=== PATIENT | male | born 1970 | race Caucasian/White ===

== ENCOUNTER → 2019-06-02 09:05 | Outpatient (CLI) | payer OTHER, SELFPAY ==
[2019-06-02 08:51] VITALS: BMI 31.1
--- NOTE | 2019-06-02 09:06 | RAD_ITS ---
STUDY: X-RAY - LEFT KNEE REASON FOR EXAM: Male, 49 years old. [place] and felt a and quot; pop and quot; while walking down steps yesterday, pain and limited ability to weight bear TECHNIQUE: 4 view(s) of the knee. COMPARISON: None. FINDINGS: Normal visualized distal femur. Normal visualized proximal tibia and fibula. Normal proximal tibiofibular articulation. Normal medial femorotibial compartment. Normal lateral femorotibial compartment. Normal patellofemoral articulation. The soft tissue structures are unremarkable. RAD/Knee 4 or More Views IMPRESSION: Normal x-ray examination of the knee. Electronically Signed: Ernesto Riggs, at 9:27 EST , Service support ,
== END ==
LOC: HPRAD 09:05
PROVIDERS: PCP Family Medicine; Referring Provider Physician Assistant Surgical; Visit Provider Physician Assistant Surgical
DX: S86.912A Strain of unspecified muscle(s) and tendon(s) at lower leg level, left leg, initial encounter (principal); X58.XXXA Exposure to other specified factors, initial encounter; Y93.9 Activity, unspecified; Y92.9 Unspecified place or not applicable; Y99.9 Unspecified external cause status
CPT/HCPCS: 73564

== ENCOUNTER → 2019-06-05 08:20 | Outpatient (CLI) | payer OTHER, SELFPAY ==
[2019-06-05 08:12] VITALS: BMI 31.1
--- NOTE | 2019-06-05 08:20 | RAD_ITS ---
STUDY: X-RAY - RIGHT KNEE REASON FOR EXAM: Male, 49 years old. CHRONIC PAIN TECHNIQUE: 4 view(s) of the knee. COMPARISON: None. FINDINGS: Normal visualized distal femur. Normal visualized proximal tibia and fibula. Normal proximal tibiofibular articulation. There is mild degenerative arthrosis of the medial femorotibial compartment. Normal lateral femorotibial compartment. Normal patellofemoral articulation. The soft tissue structures are unremarkable. RAD/Knee 4 or More Views IMPRESSION: Mild medial compartment arthrosis Electronically Signed: Kimani Inman MD at 13:51 EST , Service support ,
== END ==
LOC: HPRAD 08:20
PROVIDERS: PCP Family Medicine; Referring Provider Orthopaedic Surgery; Visit Provider Orthopaedic Surgery
DX: M25.561 Pain in right knee (principal)
CPT/HCPCS: 73564

== ENCOUNTER → 2019-07-07 16:07 | Outpatient (CLI) | payer OTHER, SELFPAY ==
[2019-06-05 08:12] VITALS: BMI 31.1
--- NOTE | 2019-07-07 16:15 | MRI_ITS ---
STUDY: MRI LEFT KNEE REASON FOR EXAM: Left knee pain, no specific injury. TECHNIQUE: Standardized fat and water weighted pulse sequences were obtained in all 3 orthogonal planes. COMPARISON: Radiographs 06/02/2019. FINDINGS: There is a radial tear of the posterior horn of the medial meniscus near the root (T2 coronal images 10-12). There is a focal chondral defect of the medial femoral condyle (T2 sagittal image 7; T2 coronal images 15-17) measuring approximately 1.5 x 0.7 cm (AP x transverse). There is slight subchondral bone edema of the medial femoral condyle and tibial plateau. Normal medial collateral ligamentous complex (MCL). Normal distal semimembranosus, gracilis and semitendinosus tendons. Normal lateral meniscus. Normal hyaline cartilage of the lateral femorotibial compartment. Normal lateral femoral condyle and tibial plateau. Normal proximal tibiofibular articulation. Normal lateral collateral (fibular) ligament. Normal popliteus tendon. Normal biceps femoris tendon. There is intrasubstance mucoid degeneration of the anterior cruciate ligament (T2 sagittal image 13). Normal posterior cruciate ligament (PCL). There is lateral subluxation of the patella (T2 axial image 9). There is intermediate grade chondromalacia patellae, especially of the lateral patellar facet (T2 axial image 7). Normal medial and lateral patellar retinaculum. Normal visualized quadriceps tendon. Normal patellar tendon. Normal Hoffa''s fat pad. There is a moderately large joint effusion. There is a thin patellar plica. There is edema in the subcutis adipose space. The otherwise visualized osseous structures are unremarkable. MRI/Lower Ext Joint Only (Routine) IMPRESSION: Radial tear of the medial meniscus. Focal chondral defect of the medial femoral condyle. Chondromalacia patellae. Lateral subluxation of the patella. Joint effusion. Electronically Signed: Chavez Raphael MD at 8:59 EDT Tel , Service support ,
== END ==
LOC: MRI 16:08
PROVIDERS: PCP Family Medicine; Referring Provider Orthopaedic Surgery; Visit Provider Orthopaedic Surgery
DX: M25.562 Pain in left knee (principal)
CPT/HCPCS: 73721

== ENCOUNTER 2019-09-01 05:55 | Day surgery (SDC) | payer OTHER, SELFPAY ==
[2019-07-13 08:41] VITALS: BMI 31.1
--- NOTE | 2019-07-13 08:55 | HP_ITS ---
Intake Vital Signs 07/13/19 BMI 31.1 Intake Visit Reasons: LEFT KNEE Chief Complaint: left knee Accompanied by: self Allergies No Known Allergies Allergy (Unverified 06/02/19 08:52) Medications omeprazole magnesium 20 mg tablet,delayed release 20 mg PO DAILY 06/02/19 [History Confirmed 07/13/19] lisinopril 20 mg-hydrochlorothiazide 12.5 mg tablet tab PO 06/05/19 [History Confirmed 07/13/19] tramadol 50 mg tablet 50 mg PO Q8H PRN #42 tab 07/08/19 [Rx Confirmed 07/13/19] PFSH Medical History (Updated 06/02/19 @ 09:01 by JAQUAN Braxton) History of arthritis (Acute) Knee pain (Acute) Hypertension (Chronic) Social History (Updated 07/13/19 @ 09:[address] Ganga Velásquez DO) alcohol intake: never HPI LEFT KNEE: Surgical H&P: Yes Details: Parts of this documentation were recorded by a scribe, this documentation accurately reflects the service provided and the decisions made by Ganga pelaez DO 07/13/19 0836. SHERRI MILLER is a 49 year old M here today for F/U on left knee. Patient had MRI on 07/07/2019, disscussed surgery with patient on 07/08/2019. He continues to have generalized BL knee pain. Does have painful popping and clicking in the left knee. Patient wishes to proceed with having surgery of the left knee. [place] [facility] [place]PI, Reports abnormal walking, Reports joint pain, Reports limited joint movement, Reports stiffness Neuro Yes abnormal walking Ortho Exam Right Knee Patella Translation: 1 Left Knee Skin/Wound: No ecchymosis, No erythema, No swelling Homans Sign: No Knee ROM: Yes ROM-Extension -20 to 0, No ROM-Flexion 0-140 (110) Examination: Yes med jt line tenderness, No Lat jt line tenderness, Yes Crepitus, Yes Pain with flexion, Yes Rachel's Test (pain medial), Yes Loredo's Stability: NML: Anterior Drawer, NML: Valgus 30, NML: Varus 30 Apprehension with Lateral Translation: No Patella Translation: 1 Patella Grind: No KNEE: painful grind of patella, Supplemental Info 06/05/2019 x-ray right knee mild medial joint space narrowing mild spurring medial compartment mild spurring patellofemoral joint 06/02/2019 x-ray left knee: 3 medial and lateral femoral condyle mild spurring trochlea Assessment & Plan Problems 1. Tear of medial meniscus of left knee, current, unspecified tear type, initial encounter S83.242A 2. Primary osteoarthritis of left knee M17.12 Plan Patient is here today to discuss surgery. Patient wishes to proceed with Left knee partial medial meniscectomy with possible microfracture medial femoral condyle. Reviewed the pre-operative plans with the patient. Risks and benefits of the procedure were fully explained, including but not limited to infection, neurovascular injury, continued pain, arthritis, stiffness, need for further surgery, re-injury, DVT, PE, general risks of anesthesia, and loss of limb or life. The patient understands all the risks and does wish to proceed with written consent. Patient wishes to have the [facility]. We will try to place the patient on the surgery schedule for tomorrow, 07/14/2019. Follow up 2 weeks post op or sooner if pain, swelling, numbness or associated symptoms, or concerns develop. All questions answered. Patient in agreement of plan. He understands if microfracture is performed he will be toe-touch weightbearing for 6 weeks on that side Coding Level of Care Code Off vis,est,level 3 Diagnoses Tear of medial meniscus of left knee, current, unspecified tear type, initial encounter S83.242A ??Encounter type: initial encounter ??Meniscus tear of knee type: unspecified type ??Tear current or old: current Primary osteoarthritis of left knee M17.12 ??Osteoarthritis type: primary 07/13/19 0934 <Electronically signed by Ganga ortiz DO> Date _ Ganga Velásquez DO
[2019-08-26 09:38] VITALS: BMI 31.1
[2019-09-01 06:22] VITALS: BP 145/72; PULSE 66; RESP 18; TEMP 36.5; O2SAT 98; BMI 33.6
[2019-09-01] MEDS: Lactated Ringers 1,000 ML 100 ML IV (06:39)
--- NOTE | 2019-09-01 07:30 | HP.PCM_ITS ---
History and Physical Date of Admission: 09/01/19 Intake Vital Signs 07/13/19 BMI 31.1 Intake Visit Reasons: LEFT KNEE Chief Complaint: left knee Accompanied by: self Allergies No Known Allergies Allergy (Unverified 06/02/19 08:52) Medications omeprazole magnesium 20 mg tablet,delayed release 20 mg PO DAILY 06/02/19 [History Confirmed 07/13/19] lisinopril 20 mg-hydrochlorothiazide 12.5 mg tablet tab PO 06/05/19 [History Confirmed 07/13/19] tramadol 50 mg tablet 50 mg PO Q8H PRN #42 tab 07/08/19 [Rx Confirmed 07/13/19] PFSH Medical History (Updated 06/02/19 @ 09:01 by JAQUAN Braxton) History of arthritis (Acute) Knee pain (Acute) Hypertension (Chronic) Social History (Updated 07/13/19 @ 09:[address] Ganga Velásquez DO) alcohol intake: never HPI LEFT KNEE: Surgical H&P: Yes Details: Parts of this documentation were recorded by a scribe, this documentation accurately reflects the service provided and the decisions made by Ganga pelaez DO 07/13/19 0836. SHERRI MILLER is a 49 year old M here today for F/U on left knee. Patient had MRI on 07/07/2019, disscussed surgery with patient on 07/08/2019. He continues to have generalized BL knee pain. Does have painful popping and clicking in the left knee. Patient wishes to proceed with having surgery of the left knee. [place] [facility] [place]PI, Reports abnormal walking, Reports joint pain, Reports limited joint movement, Reports stiffness Neuro Yes abnormal walking Ortho Exam Right Knee Patella Translation: 1 Left Knee Skin/Wound: No ecchymosis, No erythema, No swelling Homans Sign: No Knee ROM: Yes ROM-Extension -20 to 0, No ROM-Flexion 0-140 (110) Examination: Yes med jt line tenderness, No Lat jt line tenderness, Yes Crepitus, Yes Pain with flexion, Yes Rachel's Test (pain medial), Yes Loredo's Stability: NML: Anterior Drawer, NML: Valgus 30, NML: Varus 30 Apprehension with Lateral Translation: No Patella Translation: 1 Patella Grind: No KNEE: painful grind of patella, Supplemental Info 06/05/2019 x-ray right knee mild medial joint space narrowing mild spurring medial compartment mild spurring patellofemoral joint 06/02/2019 x-ray left knee: 3 medial and lateral femoral condyle mild spurring trochlea Assessment & Plan Problems 1. Tear of medial meniscus of left knee, current, unspecified tear type, initial encounter S83.242A 2. Primary osteoarthritis of left knee M17.12 Plan Patient is here today to discuss surgery. Patient wishes to proceed with Left knee partial medial meniscectomy with possible microfracture medial femoral condyle. Reviewed the pre-operative plans with the patient. Risks and benefits of the procedure were fully explained, including but not limited to infection, neurovascular injury, continued pain, arthritis, stiffness, need for further surgery, re-injury, DVT, PE, general risks of anesthesia, and loss of limb or life. The patient understands all the risks and does wish to proceed with written consent. Patient wishes to have the [facility]. We will try to place the patient on the surgery schedule for tomorrow, 07/14/2019. Follow up 2 weeks post op or sooner if pain, swelling, numbness or associated symptoms, or concerns develop. All questions answered. Patient in agreement of plan. He understands if microfracture is performed he will be toe-touch weightbearing for 6 weeks on that side Coding Level of Care Code Off vis,est,level 3 Diagnoses Tear of medial meniscus of left knee, current, unspecified tear type, initial encounter S83.242A ??Encounter type: initial encounter ??Meniscus tear of knee type: unspecified type ??Tear current or old: current Primary osteoarthritis of left knee M17.12 ??Osteoarthritis type: primary I have re-examined the patient. There are no clinical changes since date of exam
[2019-09-01] MEDS: Cefazolin 2 GM in 0.9% Normal Saline 100 ML IV (07:39)
[2019-09-01] MEDS: Epinephrine (1 mg/ml) 1 MG/ML VIAL (07:51)
[2019-09-01] MEDS: morphine PF (epidural) 5 MG/10 ML Vial (07:51)
[2019-09-01] MEDS: MethylPREDNISolone Acetate 80 MG/ML Vial (07:51)
[2019-09-01] MEDS: Bupivacaine Mpf 0.5% 30 ML VIAL (07:51)
[2019-09-01] MEDS: Bupiv/Epi 0.5% Mpf 30 ML Vial (07:51)
[2019-09-01 08:28] VITALS: BP 145/72; BP 146/79; PULSE 71; RESP 18; TEMP 36.7; O2SAT 92
[2019-09-01 08:37] VITALS: BP 138/85; BP 145/72; PULSE 75; RESP 18; O2SAT 96
--- NOTE | 2019-09-01 08:41 | DCINST_ITS ---
Discharge Diet: No Restrictions Weight Bearing Status: Weight bearing as tolerated Call your doctor if you observe: Fever of 101 or Higher, Shortness of breath, Chest pain Additional Instructions: Ice and elevate next 72 hours .keep dressing on clean and dry for 48 hours then may remove begin showering daily but do not submerge in tub or pool. After shower may apply Band-Aids . Encourage knee range of motion weightbearing as tolerated, use crutches until confident in knee then may discontinue. No strenuous activity. When not ambulating keep iced and elevated next 72 hours. Allergies/Adverse Reactions: Allergies No Known Allergies Allergy (Unverified 09/01/19 06:18) Medications to take at Discharge omeprazole magnesium 20 mg tablet,delayed release 20 mg PO DAILY 06/02/19 lisinopril 20 mg-hydrochlorothiazide 12.5 mg tablet 1 tab PO DAILY 06/05/19 tramadol 50 mg tablet 50 mg PO Q8H PRN #42 tab 07/08/19 etodolac 500 mg tablet 500 mg PO BID #60 tab 07/17/19 Primary Care Physician: Erik Shaw MD [Primary Care Provider] - Test Results: Test results from this visit will be discussed in further detail at your follow- up appointment, if applicable. Please Follow Up With: Ganga Velásquez DO - 2 weeks
[2019-09-01 08:45] VITALS: BP 130/68; BP 145/72; PULSE 71; RESP 18; O2SAT 95
[2019-09-01 08:53] VITALS: BP 133/75; BP 145/72; PULSE 66; RESP 18; TEMP 36.9; O2SAT 96
[2019-09-01 09:59] VITALS: BP 126/73; BP 145/72; PULSE 58; RESP 16; TEMP 35.8; O2SAT 97
--- NOTE | 2019-09-08 14:06 | OP.PCM_ITS ---
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 Risk benefits and alternatives of the procedure were reviewed including risk of bleeding infection nerve artery tissue damage need for further surgery continued pain and expected postoperative course. Procedure: The patient was met in the preoperative holding area. The operative extremity was identified by both patient and physician and family and marked. Patient was brought back to the operating room on a wheeled cart and transferred to the operating table in the supine position. Anesthesia was started. A well- padded tourniquet was placed on the operative extremity. A lower extremity leg vernon was secured to the operative extremity. The contralateral extremity was well-padded and the end of the bed was flexed to 90 degrees. The patient was prepped and draped in the usual sterile fashion. A timeout was called to ensure the proper patient, procedure, and extremity were being contemplated. 0.5% Marcaine with epinephrine was injected into the planned incisional areas under the skin only. An Esmarch was used to exsanguinate the extremity and the tourniquet was inflated. An 11 blade scalpel was used to make a stab incision i n the anterior lateral portal. The arthroscope was inserted into the intercondylar notch and inflow and outflow tubes were attached. Arthroscopic visualization began. The medial compartment was entered. An 18-gauge spinal needle was used to establish the placement for anterior medial portal. An 11 blade scalpel was used to make a stab incision. Blunt probe was inserted followed by a meniscal probe. Medial compartment was entered noted to be posterior horn medial meniscus tear and a large area of grade III chondromalacia of the medial femoral condyle with some loose cartilage at the periphery it was not felt that microfracture would be appropriate due to the size of the lesion and gentle chondroplasty of the periphery was performed as well as a partial medial meniscectomy the undersurface of the patella demonstrated grade 3 as well but no loose cartilage flaps there was a medial plica which was excised the ACL was found to be intact. The lateral compartment was entered was free of meniscal or cartilage pathology The arthroscope was switched to the medial portal to complete the procedure. The medial and lateral gutters were inspected and were free of loose bodies. The patellofemoral joint was inspected as noted above. There was good patellar tracking. The knee was thoroughly irrigated and drained. An intra-articular injection with 5 cc 0.5% Marcaine plain 4 mg of m orphine and 40 mg of Depo-Medrol was injected intra-articularly. The arthroscope was removed the portals were closed with 3-0 nylon arthroscopic stitches. Followed by Xeroform 4 x 4's ABDs web roll and an Gino wrap. The tourniquet was let down and the drapes were removed. All counts were correct. The patient was brought back to the PACU in stable condition.
== END 2019-09-01 10:11 | disposition home or self-care (01) ==
LOC: SDC 05:56 → AC 05:56
PROVIDERS: PCP Family Medicine; Referring Provider Orthopaedic Surgery; Visit Provider Orthopaedic Surgery
PROC: (CPT 29870; principal; 2019-09-01 07:10)
DX: S83.222A Peripheral tear of medial meniscus, current injury, left knee, initial encounter (principal); M17.12 Unilateral primary osteoarthritis, left knee; X58.XXXA Exposure to other specified factors, initial encounter; Y93.9 Activity, unspecified; Y92.9 Unspecified place or not applicable; Y99.9 Unspecified external cause status; I10 Essential (primary) hypertension; K21.9 Gastro-esophageal reflux disease without esophagitis; Z79.899 Other long term (current) drug therapy
CPT/HCPCS: 01400; 29881; J7120; J2405

== ENCOUNTER → 2019-11-19 | Outpatient (CLI) | payer OTHER, SELFPAY ==
[2019-09-14 08:34] VITALS: BMI 33.6
== END | disposition home or self-care (01) ==
PROVIDERS: PCP Family Medicine; Referring Provider Family Medicine; Visit Provider Family Medicine
DX: Z20.828 Contact with and (suspected) exposure to other viral communicable diseases (principal)
CPT/HCPCS: 87635; U0003

== ENCOUNTER → 2019-12-16 13:02 | Outpatient (CLI) | payer OTHER, SELFPAY ==
[2019-12-07 11:26] VITALS: BMI 33.6
--- NOTE | 2019-12-16 13:03 | MRI_ITS ---
STUDY: MRI RIGHT KNEE REASON FOR EXAM: Chronic right knee pain, swelling, no specific injury, prior arthroscopy. TECHNIQUE: Standardized fat and water weighted pulse sequences were obtained in all 3 orthogonal planes. COMPARISON: Radiographs 06/05/2019. FINDINGS: There is a partial medial meniscectomy. There is a very small horizontal band of signal in the posterior horn of the medial meniscus extending to the inferior articular surface (proton-density sagittal image 20), either recurrent medial meniscal tear or scarring. There is mild arthrosis of the medial femorotibial compartment with small marginal osteophytes of the medial femoral condyle and mild chondral thinning of the medial femoral condyle (T2 coronal image 13). Normal medial femoral condyle and tibial plateau. Normal medial collateral ligamentous complex (MCL). Normal distal semimembranosus, gracilis and semitendinosus tendons. Normal lateral meniscus. Normal hyaline cartilage of the lateral femorotibial compartment. Normal lateral femoral condyle and tibial plateau. Normal proximal tibiofibular articulation. Normal lateral collateral (fibular) ligament. Normal popliteus tendon. Normal biceps femoris tendon. There is intrasubstance mucoid degeneration of the anterior cruciate ligament (T2 sagittal images 11, 12). Normal posterior cruciate ligament (PCL). Normal congruent patellofemoral articulation. There is low-grade chondromalacia patellae (T2 axial image 9). Normal medial and lateral patellar retinaculum. Normal visualized quadriceps tendon. There is mild proximal patellar tendinosis (T2 sagittal image 10). Normal Hoffa''s fat pad. There is a small joint effusion. The soft tissues are unremarkable. The otherwise visualized osseous structures are unremarkable. MRI/Lower Ext Joint Only (Routine) IMPRESSION: Partial medial meniscectomy with very small signal alteration of the posterior horn of the medial meniscus, either very small recurrent medial meniscal tear or scarring. Mild arthrosis of the medial femorotibial compartment. Low-grade chondromalacia patellae. Mild proximal patellar tendinosis. Small joint effusion. Electronically Signed: Chavez Raphael MD at 14:36 EDT Tel , Service support ,
== END ==
PROVIDERS: PCP Family Medicine; Referring Provider Orthopaedic Surgery; Visit Provider Orthopaedic Surgery
DX: M17.11 Unilateral primary osteoarthritis, right knee (principal)
CPT/HCPCS: 73721

== ENCOUNTER → 2020-01-26 14:13 | Outpatient (CLI) | payer OTHER, SELFPAY ==
[2019-12-30 15:00] VITALS: BMI 33.6
--- NOTE | 2020-01-26 14:14 | CT_ITS ---
STUDY: CT SCAN LOWER EXTREMITY RIGHT REASON FOR EXAM: Male, 50 years old. RIGHT KNEE PAIN, KRISTI PLANNING RADIATION DOSAGE (If Supplied By Facility): CTDIvol = ( 18.76 ) mGy, DLP = ( 1171.51 ) mGycm. Individualized dose optimization techniques were used for this CT.? TECHNIQUE: Multiple axial tomographic images of the right hip joint, knee joint and ankle joint were obtained. Coronal and sagittal reconstruction was obtained as well. COMPARISON: None. FINDINGS: Imaging of the right hip joint was obtained. There is good alignment. No significant abnormality is seen. There is evidence of early degenerative spurring of the medial and lateral femoral condyles. Minimal joint space narrowing of the medial and lateral compartments of the knee joint. No significant joint effusion is seen. Imaging of the ankle joint was obtained. The alignment. No abnormality is seen. CT/Extremity Lower without Contra IMPRESSION: Minimal degenerative changes of the medial and lateral compartments of the knee joint. Electronically Signed: Ernesto Riggs, at 9:12 EDT , Service support ,
== END ==
PROVIDERS: PCP Family Medicine; Referring Provider Orthopaedic Surgery; Visit Provider Orthopaedic Surgery
DX: M17.11 Unilateral primary osteoarthritis, right knee (principal)
CPT/HCPCS: 73700

== ENCOUNTER → 2020-01-27 15:27 | Outpatient (CLI) | payer OTHER, SELFPAY ==
[2019-12-30 15:00] VITALS: BMI 33.6
[2020-01-27 17:38] LABS: Absolute Lymphocyte Count 1.79 X10^3/uL (0.83-4.51); Absolute Neutrophil Count 4.7 X10^3/uL (2.0-7.7); Basophil# 0.04 X10^3/uL; Basophil% 0.5 % (0-1); Eosinophil# 0.21 X10^3/uL; Eosinophils% 2.8 % (0-5); Hematocrit 45.1 % (40-54); Hemoglobin 15.5 g/dL (13.0-16.5); Lymphocyte # 1.79 X10^3/ul (4.0); Lymphocyte % 24.1 % (19-41); Mean Corp Hgb Conc 34.4 g/dL (32-36); Mean Corpuscular Hgb 30.9 pg (27.0-32.0); Mean Corpuscular Volume 89.8 fL (80-94); Monocyte# 0.66 X10^3/uL; Monocyte% 8.9 % (0-10); NRBC Flagged by Analyzer 0 % (0-5); Neutrophil # 4.69 X10^3/uL (2.7-7.7); Neutrophil % 63.3 % (47-70); Platelet Count 256 K/mm3 (150-450); RBC Distribution Width CV 12.8 % (11.6-14.6); RBC Distribution Width SD 42.5 fl (35.1-43.9); Red Blood Count 5.02 M/mm3 (4.6-6.2); White Blood Count 7.4 K/mm3 (4.4-11.0)
[2020-01-27 17:58] LABS: Anion Gap 6 (5-15); BUN 18 mg/dL (7-18); BUN/Creat Ratio 19.6 RATIO (10-20); Calcium,Total 8.8 mg/dL (8.5-10.1); Chloride 102 mmol/L (98-107); Creatinine, Serum 0.92 mg/dL (0.70-1.30); EST Glomerular Filtration Rate 93 mL/min (>60); Est Glom Filt Rate - Afr Amer 112 mL/min (>60); Glucose 86 mg/dL (74-106); Potassium 3.7 mmol/L (3.5-5.1); Sodium Level 135 mmol/L (136-145)
== END ==
PROVIDERS: PCP Family Medicine; Referring Provider Family Medicine; Visit Provider Family Medicine
DX: Z01.818 Encounter for other preprocedural examination (principal)
CPT/HCPCS: 36415; 80048; 85025

== ENCOUNTER 2020-02-09 07:21 | Day surgery (SDC) | payer OTHER, SELFPAY ==
[2019-12-30 15:00] VITALS: BMI 33.6
[2020-01-29 07:50] VITALS: BMI 33.6
[2020-02-04 14:28] LABS: Prothrombin Time (Protime)PT. 12.7 SECONDS (11.7-14.9)
[2020-02-04 14:29] LABS: Partial Thromboplast Time 26.7 Seconds (24.1-36.2)
[2020-02-04 14:33] LABS: Magnesium 2.4 mg/dL (1.6-2.6)
[2020-02-09] VITALS (9 sets, daily range): BP systolic 104–135; BP diastolic 55–79; PULSE 55–60; RESP 16–18; TEMP 36.1–36.7; O2SAT 98–100; BMI 31.2
[2020-02-09] MEDS: Lactated Ringers 1,000 ML 999 ML IV (08:09)
[2020-02-09] MEDS: Scopolamine 1mg/72hr Patch 1 PATCH TRANSDERM. (08:10)
[2020-02-09] MEDS: Acetaminophen 500 MG Tablet 1000 MG PO ×2 (08:12→15:40)
[2020-02-09] MEDS: Celecoxib 200 MG Capsule 400 MG PO (08:12)
[2020-02-09] MEDS: Gabapentin 600 MG Tablet PO (08:12)
[2020-02-09 09:11] LABS: Bedside Glucose 123 mg/dL (70-110)
[2020-02-09] MEDS: Cefazolin 2 GM in 0.9% Normal Saline 100 ML IV (10:02)
[2020-02-09] MEDS: Lactated Ringers 1,000 ML 100 ML IV (10:15)
[2020-02-09] MEDS: 0.9% Normal Saline (Pres. free 10 ML Vial (12:43)
[2020-02-09] MEDS: Bupivacaine Mpf 0.5% 30 ML VIAL (12:43)
[2020-02-09] MEDS: Epinephrine (1 mg/ml) 1 MG/ML VIAL (12:43)
[2020-02-09] MEDS: Betamethasone/Betamethasone 30 MG/5 ML Vial (12:43)
--- NOTE | 2020-02-09 12:53 | RAD_ITS ---
STUDY: X-RAY - RIGHT KNEE REASON FOR EXAM: Male, 50 years old. POST OP TECHNIQUE: 2 view(s) of the knee. COMPARISON: 06/05/2019 FINDINGS: Patient is status post replacement of the medial compartment of the right knee joint. Components demonstrate anatomic alignment. No plain film evidence of postoperative complication. Normal postoperative soft tissue swelling and subcutaneous emphysema RAD/Knee 1 or 2 Views IMPRESSION: Replaced medial compartment of the right knee joint, no postoperative complications Electronically Signed: Kimani Inman MD at 16:12 EDT , Service support ,
--- NOTE | 2020-02-09 13:02 | DCINST_ITS ---
Discharge Diet: No Restrictions Weight Bearing Status: Weight bearing as tolerated Keep extremity elevated above heart level: Operative Extremity Call your doctor if you observe: Shortness of breath, Chest pain Additional Instructions: Ice and elevate one week while not ambulating. Ambulation is encouraged. Weightbearing as tolerated. Use assistive devise for stability. Encourage FULL knee extension and flexion 1 time EVERY time you get up and down and MULTIPLE times per day. No showering 72 hours after surgery. Begin showering postop day #3. Remove the dressing prior to shower and gently wash with warm water and antibacterial soap then pat dry and place abdominal pad (or plain gauze) and SAM hose over top. This is to be done daily. Do not submerge for 3 weeks. If not showering daily after the initial 72 hours then you must clean incision and change dressing daily. Do not allow animals near the incision area. Keep clean. Follow anticoagulation recommendations as prescribed. Do not take any NSAIDs while on blood thinner. Do not take any additional narcotic pain medication other than what was prescribed on you surgery day without discussing with physician. Start physical therapy. If you are not currently scheduled for physical therapy or you are unsure of appointment time please call office [facility] to arrange. Call Dr. Velásquez with any concerns. Allergies/Adverse Reactions: Allergies No Known Allergies Allergy (Unverified 02/09/20 07:45) Medications to take at Discharge omeprazole magnesium 20 mg tablet,delayed release 20 mg PO DAILY PRN 06/02/19 lisinopril 20 mg-hydrochlorothiazide 12.5 mg tablet 1 tab PO DAILY 06/05/19 Acetaminophen [Tylenol Extra Strength] 1,000 mg PO Q6H PRN #100 tab 02/09/20 Apixaban [Eliquis] 2.5 mg PO BID #30 tab 02/09/20 Cephalexin [Keflex] 1,000 mg PO Q8 #4 cap 02/09/20 Oxycodone [Oxyir] 5 mg PO Q4H PRN PRN #60 tab 02/09/20 The following prescriptions were given: Apixaban [Eliquis] 2.5 mg PO BID #30 tab Transmission Status: Received by [facility] Cephalexin [Keflex] 1,000 mg PO Q8 #4 cap Transmission Status: Received by [facility] Oxycodone [Oxyir] 5 mg PO Q4H PRN PRN #60 tab PRN Reason: Pain Score 6-10 Transmission Status: Received by [facility] Acetaminophen [Tylenol Extra Strength] 1,000 mg PO Q6H PRN #100 tab Transmission Status: Received by [facility] Primary Care Physician: Amari Valle MD [Primary Care Provider] - Test Results: Test results from this visit will be discussed in further detail at your follow- up appointment, if applicable. Please Follow Up With: Ganga Velásquez DO - 2 weeks
--- NOTE | 2020-02-09 13:02 | PCM.HP.BLA ---
History and Physical Date of Admission: 02/09/20 Intake Vital Signs 01/29/20 BMI 33.6 Intake Visit Reasons: right knee Chief Complaint: left knee Allergies No Known Allergies Allergy (Unverified 01/26/20 09:25) Medications omeprazole magnesium 20 mg tablet,delayed release 20 mg PO DAILY PRN 06/02/19 [History Confirmed 01/29/20] lisinopril 20 mg-hydrochlorothiazide 12.5 mg tablet 1 tab PO DAILY 06/05/19 [History Confirmed 01/29/20] [facility] Medical History (Updated 09/01/19 @ 07:[address] Ganga Velásquez DO) History of arthritis (Acute) Knee pain (Acute) Hypertension (Chronic) Social History (Updated 01/29/20 @ 11:[address] Ganga Velásquez DO) Smoking Status: Never smoker alcohol intake: never HPI right knee: Details: Parts of this documentation were recorded by a scribe, this documentation accurately reflects the service provided and the decisions made by me, Dr. Ganga Velásquez DO 01/29/20 0750. SHERRI MILLER is a 50 year old M here today for right knee IOVERA tx. PAtient is scheduled for a unicompartmental knee replacement. DOS is scheduled for 02/09/2020. Denies numbness, tingling or other associated symptoms. He continues to have medial knee pain. ROS Musc Reports joint pain, Reports limited joint movement, Denies numbness, Reports stiffness, Denies tingling Skin/Breast Denies lesions, Denies rash, Denies skin pain, Denies skin swelling, Denies unusual bruising, Denies wounds Neuro No numbness, No tingling Ortho Exam Right Knee Skin/Wound: No erythema, No ecchymosis, No swelling Homans Sign: No Knee ROM: Yes ROM-Extension -20 to 0 Examination: No Med jt line tenderness, No Lat jt line tenderness, No Crepitus, No Rachel's Test, No TTP Pes Anserine Stability: NML: Anterior Drawer, NML: Posterior Drawer, NML: Valgus 30, 1+: Varus 30 (3mm medial gapping d/t joint space narrowing) Patella Translation: 1 Apprehension with Lateral Translation: No Patella Grind: No KNEE: no joint effusion slight varus bow Left Knee Patella Translation: 1 Office Procedures Iovera Details:: Preoperative diagnosis : right knee osteoarthritis Postoperative diagnosis: Same Procedure: Cryotherapy with Iovera device to anterior femoral cutaneous nerve and 2 branches of the infrapatellar saphenous nerve III nerves in total Description of procedure: Patient was brought back to the procedure room the operative extremity was identified by both patient and physician. The PIP flexion crease was measured to the midpoint of the patella and this distance was divided in 3 resulting in 10 cm location proximal to the midpoint of the patella. This line was extended medial and lateral to the extent of the edges of the patella. This was our treatment line for the anterior femoral cutaneous nerve. A second treatment line was made 5 cm medial to the inferior pole of the patella and 5 cm distally. The leg was prepped with alcohol and Betadine. Lidocaine with epi was used along the treatment lines. Using the Iovera device treatment lines were treated with 1 minute cycles. Reproduction of paresthesias was monitored in the area of nerve distribution. Once all 3 nerves were treated across the 2 treatment lines patient was cleaned and a light dressing with 4 x 4 and Gino wrap was applied. Patient tolerated the procedure without complication. Supplemental Info 12/16/2019MRIPartial medial meniscectomy small horizontal band of signal posterior horn extending to inferior articular surface either recurrent medial meniscus tear versus scarring mild arthrosis of the medial compartment with small marginal osteophytes Assessment & Plan Problems 1. Chronic pain of right knee M25.561; G89.29 Plan Patient educated on the risk and benifits of Iovera treatment and wishes to proceed with the treatment today. Risks, benefits and alternatives of surgery reviewed including but not limited to bleeding, infection, nerve, artery and/or tissue damage, fracture, VTE, mechanical feel of the knee, continued pain, stiffness and expected post-operative course. Reviewed the pre-operative plans with the patient. Risks and benefits of the procedure were fully explained, including but not limited to infection, neurovascular injury, continued pain, arthritis, stiffness, need for further surgery, re-injury, DVT, PE, general risks of anesthesia, and loss of limb or life. The patient understands all the risks and does wish to proceed with written consent. Follow up 2 weeks post op or sooner if pain, swelling, numbness or associated symptoms, or concerns develop. All questions answered. Patient in agreement of plan. Orders Orders: Iovera Today M25.569 Coding Level of Care Code Attention Living Supervisor Diagnoses Chronic pain of right knee M25.561; G89.29 ??Chronicity: chronic I have re-examined the patient. There are no clinical changes since date of exam
[2020-02-09] MEDS: Lactated Ringers 1,000 ML 125 ML IV (13:57)
[2020-02-09] MEDS: Cefazolin 1 GM/50 ML BAG IV (15:37)
--- NOTE | 2020-02-09 15:59 | PCM.OPRPT ---
Report of Operation Date of Procedure: 02/09/20 Description of Surgical Findings:: Preoperative diagnosis: Right knee medial compartment osteoarthritis Postoperative diagnosis: Same, small area of grade 3 of the trochlea Procedure: Chuy CT assisted unicompartmental knee arthroplasty Implants: Capron size 8 poly Anesthesia: spinal with adductor canal block EBL: [75] Complications: none Condition: Stable to PACU Indication for procedure: 50-year-old male patient with medial compartment osteoarthritis who is failed conservative treatment who did wish to proceed with elective knee compartmental knee arthroplasty to alleviate his pain risk benefits and alternatives were reviewed including risk of bleeding infection nerve, artery, bone, tissue damage, blood clot need for further surgery and continued pain. Patient was met in the preoperative holding area once again the operative extremity was then identified by both patient and physician and was marked. Patient was met by anesthesia and brought back to the operating will cart and transferred the operating table in supine position. Anesthesia then placed a spinal patient was then positioned supine with a well-padded tourniquet under the operative extremity. A bump was placed under the right hip and the patient was prepped and draped in the usual sterile fashion. A timeout was called to ensure the proper patient procedure and extremity were being contemplated. An Esmarch was used to exsanguinate the extremity and the tourniquet was inflated to 300 mmHg. A standard medial to midline incision was made from the superior pole of the patella to the tibial plateau. Electrocautery was used obtain meticulous hemostasis. The capsule was incised. We then proceeded to place the tibial and femoral array in standard fashion. Checkpoint was placed on both femur and tibia. Mapping was performed to align the knee with our plan. Rondure was used to remove osteophytes on the medial side of the femur and tibia. We then stressed the medial collateral ligament and extension and sequential degrees of flexion to balance the implant position on our computer. Once we determined the implant was balanced. We proceeded to bring in the robotic arm for completion of the tibial plateau cut and the posterior femoral cut. We then switched the attachment on the robotic arm to the bur and completed the femoral and tibial preparations. We then trialed and the knee felt good. We then proceeded with cementing of the tibial component cementing of the femoral component and insertion of the poly. Thorough irrigation was performed of the knee followed by Aricept rinse followed by closure of the joint capsule with [id number] Ethibond #1. 2-0 Vicryl subcutaneous stitches followed by anais in the skin. Dressing was applied in the form of Mepilex Ag. And a thigh-high SAM hose. All counts were correct patient was brought back to the PACU in stable condition
== END 2020-02-09 16:59 | disposition home or self-care (01) ==
LOC: SDC 07:22 → AC 07:22
PROVIDERS: Anesthesiology; PCP Family Medicine; Referring Provider Orthopaedic Surgery; Visit Provider Orthopaedic Surgery
PROC: (CPT 27446; principal; 2020-02-09 09:00)
DX: M17.11 Unilateral primary osteoarthritis, right knee (principal); Z79.899 Other long term (current) drug therapy; I10 Essential (primary) hypertension
CPT/HCPCS: 01400; 27446; 64451; 36415; 73560; 82962; 83735; 85610; 85730; 86850; 86900; 86901; 87077; 87081; 87635; 97161; 97166; C1776; C9803; J7120; J0702; J3490; U0003

== ENCOUNTER 2020-02-22 11:00 | Outpatient (RCR) | payer OTHER, SELFPAY ==
[2019-12-30 15:00] VITALS: BMI 33.6
[2020-02-09 07:48] VITALS: BMI 31.2
--- NOTE | 2020-02-11 11:51 | HP.PTEVAL ---
Patient's Visit Information SHERRI MILLER is a 50 year old M referred to Physical Therapy by Dr. Ganga Velásquez DO with a diagnosis of Right Unicompartmental Knee Replacement. Date of Evaluation: 02/11/20 Physical Therapist: Gem June DPT - Visit Plan Frequency: 3x /Week Duration: 3 Weeks Plan: Partial TKR right 02/09/2020- Focus on LE ROM, strength, flex, and muscular endurance - Subjective Right partial knee replacement on 02/[address] Mosqueda- went home the same day. and 2 daughters at home that can help as needed. Double story but he does not have to use it- is going down into the basement- 2 steps into the house- there is a hand rail. No problems getting up/down just a lot slower. Fully I prior to surgery- work: building maintaince. RTW date is Mar 14- does everything at work- but can do more light duty things. Has been having knee problems for the past 4 years. Both knees have been scoped and finally had to do something with the right one. Worst: 5/10 Agg: movement Best: 0/10 Eases: pain meds. Pain is located along the top part of the knee. He has a burning sensation along the incision. Does have some swelling in the knee. Sleep: not to bad- in his bed in the living room. Describes the pain as just a pain. Comes and goes- feels really tight. He has been moving around a lot. Is using a walker all the time. Does have access to a cane. Is doing some exercise for the leg- straightening, bending, HR/TR. PMhx/Meds: no changes since he left the hospital - Objective Posture: FH, RS, can correct with verbal cues. Gait: antalgic- decreased stance on the right LE- poor heel/toe due to decreased knee extension- standard walker. SLS: weight shifting. HR/TR: able with UE A. Stairs:asc/desc 8 non recip with 1 HR. Observation: bandage intact- no s/s of infection. ROM: 20 degrees to 110 degrees. Strength: Ankle: 5/5, Knee: 4/5 in available range- requires min A for SLR, Hip: 4-/5 Core: fair minus. Flex: HS: severe, Gastroc: severe - Goals Goal 1:: Patient will be I with HEP and progression Goal Time Frame: 4-6 Weeks Goal 2:: Patient will ambulate >300 feet with normalized gait pattern Goal Time Frame: 4-6 Weeks Goal 3:: Patient will asc/desc 8 stairs recip with 1 HR Goal Time Frame: 4-6 Weeks Goal 4:: Patient will demo 0-130 degrees of ROM in the right knee Goal Time Frame: 4-6 Weeks - Rehabilitation Potential Physical Therapy Diagnosis: Patient presents with hypomobility- he has decreased ROM, strength, flex and muscular endurance s/p right partial TKR leading to abnormal gait pattern and decreased ability with ADL's. Rehabilitation Potential: Good - Anticipated Interventions Patient/Client Instruction: Educate patient on: Benefits of Fitness Program Therapeutic Exercise to Include: Strength training, Endurance training, Balance training, Agility training, Body mechanics, Postural training, Flexibilty training, Gait and locomotor training, Neuromotor development, Passive ROM, Active ROM, Dynamic Lumbar Stabilization, Scapular Strength/Stabilization For the Purpose of:: To improve muscle performance and motor function TENS: Yes Cryotherapy (ice pack, ice massage): Yes Thermo therapy (hot pack): Yes Ultrasound (thermal/non thermal): No Thank you for the opportunity to evaluate your patient. For Medicare and Medicare HMO plans, please review the plan of care and approve it. It will need to be FAXED BACK to us at [phone] for Medicare purposes. For Medicare only, by signing this I certify the plan of care. Please let me know if there are questions or concerns regarding this plan of care. Physician Signature: Date:
--- NOTE | 2020-02-22 12:31 | HP.PTREVAL_ITS ---
Dr. Ganga Velásquez, DO, It has been my pleasure to treat SHERRI MILLER over the last 4 visits for Right Unicompartmental Knee Replacement. Please see the progress note below for an update on the physical therapy plan of care! Subjective: Patient reports that he is doing well- it get stiff when he sits for long periods of time. Getting better each day- plans to continue. took out all of his own anais Objective/Function: Posture: FH, RS, can correct with verbal cues. Gait: antalgic- decreased stance on the right LE- poor heel/toe due to decreased knee extension- no AD SLS: weight shifting. HR/TR: able with UE A. Stairs:asc/desc 8 non recip with 1 HR. Observation: healing well no s/s of infection (pt took out own anais). ROM: 15 degrees to 110 degrees. Strength: Ankle: 5/5, Knee: 4/5 in available range- requires min A for SLR, Hip: 4-/5 Core: fair minus. Flex: HS: severe, Gastroc: severe Plan Plan: Hold- pt to go to [place] for 2 weeks- then follow up as needed Goals Goal 1:: Patient will be I with HEP and progression Goal Time Frame: 4-6 Weeks Goal 2:: Patient will ambulate >300 feet with normalized gait pattern Goal Time Frame: 4-6 Weeks Goal 3:: Patient will asc/desc 8 stairs recip with 1 HR Goal Time Frame: 4-6 Weeks Goal 4:: Patient will demo 0-130 degrees of ROM in the right knee Goal Time Frame: 4-6 Weeks Anticipated Interventions Patient/Client Instruction: Educate patient on: Benefits of Fitness Program Therapeutic Exercise to Include: Strength training, Endurance training, Balance training, Agility training, Body mechanics, Postural training, Flexibilty tra ining, Gait and locomotor training, Neuromotor development, Passive ROM, Active ROM, Dynamic Lumbar Stabilization, Scapular Strength/Stabilization For the Purpose of:: To improve muscle performance and motor function TENS: Yes Cryotherapy (ice pack, ice massage): Yes Thermo therapy (hot pack): Yes Ultrasound (thermal/non thermal): No Please do not hesitate to contact me at [phone] by phone or if you have questions or concerns regarding this new plan of care! Sincerely, Gem June, DARINT
--- NOTE | 2020-04-07 11:41 | HP.PT.NRP ---
SHERRI MILLER was seen in my office for initial evaluation on 02/11/20. The following Plan of Care was established for this patient: Initial Frequency: 3x /Week Initial Duration: 3 Weeks Patient/Client Instruction: Educate patient on: Benefits of Fitness Program Therapeutic Exercise to Include: Strength training, Endurance training, Balance training, Agility training, Body mechanics, Postural training, Flexibilty training, Gait and locomotor training, Neuromotor development, Passive ROM, Active ROM, Dynamic Lumbar Stabilization, Scapular Strength/Stabilization For the Purpose of:: To improve muscle performance and motor function TENS: Yes Cryotherapy (ice pack, ice massage): Yes Thermo therapy (hot pack): Yes Ultrasound (thermal/non thermal): No This patient was last seen in our office . Pertinent comments regarding their Physical therapy will appear below: Patient has not returned to PT in over 6 weeks- appropriate for discharge and return to MD for further evaluation. At this point I will be discontinuing this patient from physical therapy. I would be happy to see this patient again in the future if found appropriate by the physician. Thank you! DARIN SharpT
== END 2020-02-22 19:00 | disposition home or self-care (01) ==
LOC: PT 11:00
PROVIDERS: PCP Family Medicine; Referring Provider Orthopaedic Surgery; Visit Provider Orthopaedic Surgery
DX: Z47.89 Encounter for other orthopedic aftercare (principal)
CPT/HCPCS: 97110; 97162; 97164

== ENCOUNTER → 2022-08-31 | Outpatient (CLI) | payer OTHER, SELFPAY ==
[2022-08-31 10:50] LABS: Anion Gap 8 (5-15); BUN 19 mg/dL (7-18); Calcium,Total 8.7 mg/dL (8.5-10.1); Chloride 106 mmol/L (98-107); Cholesterol 186 mg/dL (200); Creatinine, Serum 0.86 mg/dL (0.70-1.30); EST Glomerular Filtration Rate 99 mL/min (>60); Est Glom Filt Rate - Afr Amer 120 mL/min (>60); Glucose 104 mg/dL (74-106); High Density Lipoprotein 29 mg/dL; Potassium 3.8 mmol/L (3.5-5.1); Sodium Level 137 mmol/L (136-145); Triglycerides 366 mg/dL; Very Low Density Lipoprotein 73 mg/dL (5-40)
== END | disposition home or self-care (01) ==
LOC: MFPLAB 08:41
PROVIDERS: PCP Family Medicine; Visit Provider Family Medicine
DX: I10 Essential (primary) hypertension (principal); N52.9 Male erectile dysfunction, unspecified
CPT/HCPCS: 36415; 80048; 80061; 84403

== ENCOUNTER → 2023-01-15 | Outpatient (CLI) | payer OTHER, SELFPAY ==
[2023-01-15 12:34] LABS: Cholesterol 159 mg/dL (200); High Density Lipoprotein 44 mg/dL; Triglycerides 155 mg/dL; Very Low Density Lipoprotein 31 mg/dL (5-40)
== END | disposition home or self-care (01) ==
LOC: MFPLAB 10:00
PROVIDERS: PCP Family Medicine; Visit Provider Family Medicine
DX: E78.5 Hyperlipidemia, unspecified (principal)
CPT/HCPCS: 36415; 80061

== ENCOUNTER → 2023-01-21 | Outpatient (CLI) | payer OTHER, SELFPAY ==
--- NOTE | 2023-01-21 10:26 | RAD_ITS ---
INDICATION: PAIN EXAMINATION/TECHNIQUE: X-RAY - RIGHT XR Calcaneus 2 VIEWS COMPARISON: FINDINGS: SOFT TISSUES: No soft tissue swelling or gas. No radiopaque foreign body. BONES/JOINTS: No acute fracture or subluxation.. Plantar calcaneal spurring. Normal alignment. Preservation of the joint space.. No sclerotic or destructive changes observed. RAD/Calcaneus min 2 Views IMPRESSION: No acute bony injury. Electronically Signed: Samir Parada DO at 23:49 EDT ,
[2023-01-21 12:03] LABS: Hematocrit 46.2 % (40-54); Hemoglobin 16.1 g/dL (13.0-16.5); Mean Corp Hgb Conc 34.8 g/dL (32-36); Mean Corpuscular Hgb 31.9 pg (27.0-32.0); Mean Corpuscular Volume 91.7 fL (80-94); Mean Platelet Vol. 10.8 fl (6.2-12.0); Platelet Count 233 K/mm3 (150-450); RBC Distribution Width SD 43.1 fl (35.1-43.9); Red Blood Count 5.04 M/mm3 (4.6-6.2); White Blood Count 7.1 K/mm3 (4.4-11.0)
[2023-01-21 12:32] LABS: PSA,Total - Annual Screen 0.21 ng/mL (0.00-4.00)
== END | disposition home or self-care (01) ==
LOC: MTLAB 10:24
PROVIDERS: PCP Family Medicine; Referring Provider Family Medicine; Visit Provider Family Medicine
DX: E29.1 Testicular hypofunction (principal)
CPT/HCPCS: 36415; 73650; 84153; 84403; 85027; G0103

== ENCOUNTER → 2023-06-11 | Outpatient (CLI) | payer OTHER, SELFPAY | END | disposition home or self-care (01) | LOC: MFPLAB 08:19 | PROVIDERS: PCP Family Medicine; Visit Provider Family Medicine | DX: Z00.00 Encounter for general adult medical examination without abnormal findings (principal) ==

== ENCOUNTER → 2023-06-17 | Outpatient (CLI) | payer OTHER, SELFPAY ==
[2023-06-17 10:30] LABS: Absolute Lymphocyte Count 1.52 X10^3/uL (0.83-4.51); Absolute Neutrophil Count 3.1 X10^3/uL (2.0-7.7); Basophil# 0.02 X10^3/uL; Basophil% 0.4 % (0-1); Eosinophils% 1.9 % (0-5); Hematocrit 44.3 % (40-54); Hemoglobin 15.6 g/dL (13.0-16.5); Lymphocyte # 1.52 X10^3/ul (0.83-4.51); Lymphocyte % 29.3 % (19-41); Mean Corp Hgb Conc 35.2 g/dL (32-36); Mean Corpuscular Hgb 31.6 pg (27.0-32.0); Mean Corpuscular Volume 89.7 fL (80-94); Mean Platelet Vol. 10.1 fl (6.2-12.0); Monocyte# 0.44 X10^3/uL; Monocyte% 8.5 % (0-10); NRBC Flagged by Analyzer 0 % (0-5); Neutrophil # 3.07 X10^3/uL (2.7-7.7); Neutrophil % 59.1 % (47-70); Platelet Count 200 K/mm3 (150-450); RBC Distribution Width CV 12.6 % (11.6-14.6); Red Blood Count 4.94 M/mm3 (4.6-6.2); White Blood Count 5.2 K/mm3 (4.4-11.0)
[2023-06-17 11:24] LABS: ALB/GLOB Ratio 1.1 RATIO (0.9-2.4); AST(SGOT) 21 U/L (15-37); Alanine Aminotransfer ALT/SGPT 39 U/L (16-61); Albumin, Serum 3.8 g/dL (3.2-5.0); Alkaline Phosphatase 71 U/L (45-117); Anion Gap 3 (5-15); BUN 15 mg/dL (7-18); BUN/Creat Ratio 16.2 RATIO (10-20); Calcium,Total 8.6 mg/dL (8.5-10.1); Chloride 106 mmol/L (98-107); Cholesterol 147 mg/dL (200); Creatinine, Serum 0.93 mg/dL (0.70-1.30); EST Glomerular Filtration Rate 90 mL/min (>60); Est Glom Filt Rate - Afr Amer 109 mL/min (>60); Globulin 3.4 g/dL (2.2-4.2); Glucose 112 mg/dL (74-106); High Density Lipoprotein 44 mg/dL; PSA,Total- Diagnostic 0.27 ng/mL (0.0-4.0); Potassium 3.8 mmol/L (3.5-5.1); Protein, Total 7.2 g/dL (6.4-8.2); Sodium Level 138 mmol/L (136-145); Triglycerides 135 mg/dL; Very Low Density Lipoprotein 27 mg/dL (5-40)
== END | disposition home or self-care (01) ==
PROVIDERS: PCP Family Medicine; Referring Provider Family Medicine; Visit Provider Family Medicine
DX: Z00.00 Encounter for general adult medical examination without abnormal findings (principal); E29.1 Testicular hypofunction; I10 Essential (primary) hypertension
CPT/HCPCS: 36415; 80053; 80061; 84153; 84403; 85025